=== PATIENT | male | born 1975 | race Asian ===

== ENCOUNTER 2020-02-04 08:11 | Outpatient (CLI) | payer OTHER ==
[2020-02-04 11:53] LABS: BASOPHILS % (AUTO) 0.5 %; EOSINOPHILS # (AUTO) 0.2 10^3/uL (0.0-0.7); HGB - HEMOGLOBIN 14.3 g/dL (14.0-18.0); LYMPHOCYTES # (AUTO) 2.2 10^3/uL (1.5-3.5); LYMPHOCYTES % (AUTO) 40.6 %; MEAN CORPUSCULAR HEMOGLOBIN 29.1 pg (27.0-31.0); MEAN CORPUSCULAR HGB CONC 32.4 g/dL (32.0-36.0); MEAN CORPUSCULAR VOLUME 89.6 fL (80.0-94.0); MEAN PLATELET VOLUME 9.2 fL (7.4-11.4); MONOCYTES # (AUTO) 0.5 10^3/uL (0.0-1.0); MONOCYTES % (AUTO) 9.7 %; NEUTROPHILS # (AUTO) 2.5 10^3/uL (1.5-6.6); PLT - PLATELET COUNT 208 10^3/uL (130-450); RED BLOOD COUNT 4.92 10^6/uL (4.70-6.10); RED CELL DISTRIBUTION WIDTH 13.3 % (12.0-15.0); WHITE BLOOD COUNT 5.5 x10^3/uL (4.8-10.8)
[2020-02-04 12:11] LABS: ALBUMIN 4.5 g/dL (3.2-5.5); ALBUMIN/GLOBULIN RATIO 1.6 (1.0-2.2); ALKALINE PHOSPHATASE 41 IU/L (42-121); ALT ALANINE AMINOTRANSFERASE 19 IU/L (10-60); AST ASPARTATE AMINOTRANSFERASE 22 IU/L (10-42); BILIRUBIN,TOTAL 0.8 mg/dL (0.2-1.0); BUN - BLOOD UREA NITROGEN 9 mg/dL (6-20); CALCIUM 8.8 mg/dL (8.5-10.3); CARBON DIOXIDE - CO2 30 mmol/L (21-32); CHLORIDE 103 mmol/L (101-111); CHOL/HDL RATIO 5.1 (<5.0); CHOLESTEROL 215 mg/dL; CREATININE 0.9 mg/dL (0.6-1.2); GLUCOSE 90 mg/dL (70-100); HDL CHOLESTEROL 42 mg/dL; LDL CHOLESTEROL,CALCULATED 155 mg/dL; LDL/HDL RATIO 3.7 (<3.6); SODIUM 136 mmol/L (135-145); TOTAL PROTEIN 7.4 g/dL (6.7-8.2); VLDL CHOLESTEROL 18 mg/dL
== END 2020-02-04 23:59 | disposition home or self-care (01) ==
LOC: LAB.WCP 08:11
PROVIDERS: ATTEND Physician Assistant
DX: Z00.00 Encounter for general adult medical examination without abnormal findings (principal)
CPT/HCPCS: 36415; 80050; 80061; 83721

== ENCOUNTER 2020-02-08 14:37 | Outpatient (CLI) | payer OTHER ==
--- NOTE | 2020-02-08 16:45 | MRI Report ---
PROCEDURE: Foot LT W/O INDICATIONS: ACHILLES TENDINITIS LT TECHNIQUE: Noncontrast coronal and sagittal T1 spin echo and STIR; axial T1 spin echo and T2 fast spin echo with fat saturation through the left foot/ankle. COMPARISON: None. FINDINGS: Image quality: Excellent. Bones and joints: No acute fracture. No suspicious osseous lesion of the midfoot or hindfoot bones is present. No joint effusions. No osteochondral defects. There is diffuse hindfoot and midfoot degenerative spurring and subchondral sclerosis Medial structures: Deltoid ligament intact. Spring ligament intact. Posterior tibialis intact. There is minimal tenosynovitis. Flexor digitorum longus intact Flexor hallucis longus intact Posterior tibial neurovascular bundle appears normal within the tarsal tunnel, without extrinsic mass effect. Lateral structures: Anterior talofibular ligament intact. Calcaneofibular ligament intact. Posterior talofibular ligament intact. Anterior tibiofibular ligament intact. Posterior tibiofibular ligament intact. Peroneus longus normal Peroneus brevis normal. Sinus tarsi demonstrates normal fatty signal. Anterior structures: Dorsal talonavicular ligament intact. Tibialis anterior normal Extensor hallucis longus normal. Extensor digitorum longus normal Posterior and plantar structures: Achilles tendon intact. There is mild adjacent soft tissue edema seen on image 10/801. There is also retrocalcaneal bursal fluid. The medial and lateral bands of the plantar fascia are within normal limits. IMPRESSION: Minimal edema/fluid adjacent to the Achilles tendon which is otherwise grossly intact, demonstrating no definite thickening or intrasubstance signal changes. Mild retrocalcaneal bursal fluid raising pos sibility of low-grade bursitis. Minimal posterior tibialis tenosynovitis. Reviewed by: Darvin Hoyos MD on 02/08/2020 4:44 PM PDT Approved by: Darvin Hoyos MD on 02/08/2020 4:44 PM PDT Station ID: [id number]
== END 2020-02-08 14:38 | disposition home or self-care (01) ==
LOC: DI 14:37
PROVIDERS: ATTEND Physician Assistant
DX: M76.62 Achilles tendinitis, left leg (principal); M65.9 Synovitis and tenosynovitis, unspecified

== ENCOUNTER 2020-12-01 08:00 | Outpatient (CLI) | payer OTHER ==
[2020-12-01 12:45] LABS: ALBUMIN 4.6 g/dL (3.2-5.5); ALBUMIN/GLOBULIN RATIO 1.5 (1.0-2.2); ALKALINE PHOSPHATASE 38 IU/L (42-121); ALT ALANINE AMINOTRANSFERASE 26 IU/L (10-60); AST ASPARTATE AMINOTRANSFERASE 23 IU/L (10-42); BILIRUBIN,TOTAL 0.8 mg/dL (0.2-1.0); BUN - BLOOD UREA NITROGEN 11 mg/dL (6-20); CALCIUM 9.8 mg/dL (8.5-10.3); CARBON DIOXIDE - CO2 29 mmol/L (21-32); CHLORIDE 103 mmol/L (101-111); CHOLESTEROL 205 mg/dL; GFR - MDRD 80 (>89); GLUCOSE 99 mg/dL (70-100); HDL CHOLESTEROL 41 mg/dL; LDL CHOLESTEROL,CALCULATED 132 mg/dL; LDL/HDL RATIO 3.2 (<3.6); POTASSIUM 4.3 mmol/L (3.5-5.0); SODIUM 139 mmol/L (135-145); TOTAL PROTEIN 7.7 g/dL (6.7-8.2); TRIGLYCERIDES 160 mg/dL; VLDL CHOLESTEROL 32 mg/dL
== END 2020-12-01 23:59 | disposition home or self-care (01) ==
LOC: LAB.WCP 08:00
PROVIDERS: ATTEND Internal Medicine
DX: Z00.00 Encounter for general adult medical examination without abnormal findings (principal)
CPT/HCPCS: 36415; 80053; 80061; 83721

== ENCOUNTER 2021-06-28 15:46 | Outpatient (CLI) | payer OTHER ==
--- NOTE | 2021-06-28 17:21 | XRAY Report ---
PROCEDURE: Chest 2 View X-Ray INDICATIONS: ATYPICAL CP, ASSESS FOR ADENOPATHY OR MASS TECHNIQUE: 2 view(s) of the chest. COMPARISON: None. FINDINGS: Surgical changes and devices: None. Lungs and pleura: No pleural effusions or pneumothorax. Lungs are clear. Mediastinum: Mediastinal contours are normal. Heart size is normal. Bones and chest wall: No suspicious bony abnormalities. Soft tissues appear unremarkable. IMPRESSION: No acute cardiopulmonary disease process. Reviewed by: Chante Sandy MD, PhD on 06/28/2021 5:20 PM PST Approved by: Chante Sandy MD, PhD on 06/28/2021 5:20 PM PST Station ID: [id number]
--- NOTE | 2021-06-28 17:30 | XRAY Report ---
PROCEDURE: Cervical Spine 2 View INDICATIONS: DISCOMFORT IN LEFT NECK/ASSESS FOR DJD/DDD TECHNIQUE: 3 view(s) of the cervical spine were acquired. COMPARISON: None. FINDINGS: Bones: No fractures or dislocations to the C7-T1 level. The lateral masses of C1 appear intact on t he odontoid view. No suspicious bony lesions. There is straightening of normal cervical curvature. Mild to moderate disc space narrowing is present at C5-6. Mild uncovertebral hypertrophy is present. Soft tissues: No prevertebral soft tissue swelling. IMPRESSION: Degenerative changes most notable at C5-6. Reviewed by: Shweta Jones MD on 06/28/2021 5:29 PM PST Approved by: Shweta Jones MD on 06/28/2021 5:29 PM PST Station ID: [id number]
== END 2021-06-28 15:47 | disposition home or self-care (01) ==
LOC: DI.N 15:46
PROVIDERS: ATTEND Internal Medicine
DX: R07.89 Other chest pain (principal); M50.322 Other cervical disc degeneration at C5-C6 level

== ENCOUNTER 2021-06-29 07:00 | Outpatient (CLI) | payer OTHER ==
[2021-06-29 13:44] LABS: BASOPHILS % (AUTO) 0.3 %; EOSINOPHILS # (AUTO) 0.2 10^3/uL (0.0-0.7); EOSINOPHILS % (AUTO) 3.3 %; HGB - HEMOGLOBIN 14.7 g/dL (14.0-18.0); LYMPHOCYTES # (AUTO) 2.1 10^3/uL (1.5-3.5); LYMPHOCYTES % (AUTO) 36.6 %; MEAN CORPUSCULAR HEMOGLOBIN 29.1 pg (27.0-31.0); MEAN CORPUSCULAR HGB CONC 33.4 g/dL (32.0-36.0); MEAN PLATELET VOLUME 9.3 fL (7.4-11.4); MONOCYTES # (AUTO) 0.5 10^3/uL (0.0-1.0); MONOCYTES % (AUTO) 8.4 %; NEUTROPHILS # (AUTO) 2.9 10^3/uL (1.5-6.6); NEUTROPHILS % (AUTO) 51.2 %; PLT - PLATELET COUNT 234 10^3/uL (130-450); RED BLOOD COUNT 5.06 10^6/uL (4.70-6.10); RED CELL DISTRIBUTION WIDTH 13.1 % (12.0-15.0); WHITE BLOOD COUNT 5.7 x10^3/uL (4.8-10.8)
[2021-06-29 14:11] LABS: ALBUMIN 4.4 g/dL (3.2-5.5); ALBUMIN/GLOBULIN RATIO 1.3 (1.0-2.2); ALKALINE PHOSPHATASE 45 IU/L (42-121); ALT ALANINE AMINOTRANSFERASE 26 IU/L (10-60); AST ASPARTATE AMINOTRANSFERASE 21 IU/L (10-42); BILIRUBIN,TOTAL 0.5 mg/dL (0.2-1.0); BUN - BLOOD UREA NITROGEN 9 mg/dL (6-20); CALCIUM 9.4 mg/dL (8.5-10.3); CARBON DIOXIDE - CO2 29 mmol/L (21-32); CHLORIDE 103 mmol/L (101-111); CHOLESTEROL 216 mg/dL; CREATININE 0.9 mg/dL (0.6-1.2); GFR - MDRD 90 (>89); GLUCOSE 103 mg/dL (70-100); POTASSIUM 4.4 mmol/L (3.5-5.0); SODIUM 139 mmol/L (135-145); TOTAL PROTEIN 7.8 g/dL (6.7-8.2); TRIGLYCERIDES 135 mg/dL; VLDL CHOLESTEROL 27 mg/dL
[2021-06-29 14:14] LABS: THYROID STIMULATING HORMONE 1.1 uIU/mL (0.34-5.60)
[2021-06-29 14:59] LABS: CHOL/HDL RATIO 5.8 (<5.0); HDL CHOLESTEROL 37 mg/dL; LDL CHOLESTEROL,CALCULATED 152 mg/dL; LDL/HDL RATIO 4.1 (<3.6)
== END 2021-06-29 23:59 | disposition home or self-care (01) ==
LOC: LAB.WCP 07:00
PROVIDERS: ATTEND Internal Medicine
DX: Z00.00 Encounter for general adult medical examination without abnormal findings (principal); R07.89 Other chest pain
CPT/HCPCS: 36415; 80053; 80061; 83721; 84443; 85025

== ENCOUNTER 2021-08-16 09:11 | Outpatient (CLI) | payer OTHER ==
--- NOTE | 2021-08-16 09:24 | CARDIAC PROCEDURE NOTE ---
Stress Test Report Service Date: 08/16/21 Service Time: 09:30 Ordering Provider: Mandeep Rios Indication for Test: Assess atypical left neck/arm/chest discomfort. Significant Medical History: Nicolle is referred for a treadmill stress echocardiogram today, to assess symptoms that include pain in the left neck, radiating into the upper left arm and upper chest. He was previously very active with aerobic activities and had a prior stress echocardiogram at this [facility] in 2014, with exercise into stage 5 of the Eduardo protocol, without symptom, EKG or echo evidence of inducible ischemia. He works a sedentary job and reports that his exertional level dropped significantly with the onset of the Covid pandemic 2 years ago. This may have been in part due to the onset of the symptoms described above, which have gradually increased over the past 3 years. At times the discomfort is present continuously, and actually lessens in intensity with physical activity. He is working with a physical therapist on loosening his cervical spine, with some modest improvement over the past few weeks. He still takes leisurely walks in his neighborhood with stamina that has not incrementally worsened in the recent past. Cardiac Risk Factors: Patient denies history of hypertension, hyperlipidemia, diabetes or family history of CAD; he smoked cigarettes as a young man, but quit about 28 years ago. Type of Stress Test: ETT with Echocardiography Procedure: -Exercise Treadmill Test- After signing informed consent, the patient underwent resting echo imaging and then performed treadmill exercise using a Eduardo protocol. The patient exercised for 9 minutes 37 seconds and achieved a peak heart rate of 169 (98 percent predicted maximum heart rate for age), and an estimated workload of 11.4 METS. The test was terminated due to fatigue/shortness of breath. Resting heart rate: 73 Peak heart rate: 169 Normal response to exercise. Resting BP: 120/89 Peak BP: 191/83 Normal response of systolic and diastolic blood pressures to exercise. Rhythm during exercise: Sinus rhythm throughout. Symptoms: The patient denied experiencing any neck/shoulder/arm or chest discomfort. EKG at rest showed normal sinus rhythm, normal in all aspects. EKG at peak stress showed J-point depression with upsloping ST segments, likely NOT meeting diagnostic criteria for ischemia. In Recovery heart rate and blood pressures rapidly and normally returned to baseline levels by 5 minutes. Echo imaging performed at rest and with stress will be reported separately. Chon Sanz MD, was present throughout this treadmill stress echocardiogram and supervised it in its entirety. Summary: 1) Exercise tolerance slightly below average for age as evidenced by RAMÍREZ of 10%. 2) Normal resting EKG. 3) Adequate level of exercise was achieved on this treadmill stress test. 4) Normal BP response to exercise. 5) No ischemic changes by EKG criteria were seen at peak stress. 6) Echo image interpretation reveals normal left ventricular size and systolic function, with appropriate hyperdynamic augmentation of all segments with stress, indicative of no evidence of prior infarct or inducible ischemia. Note that screening study identified borderline dilation of the aortic root (4.0 cm) with a tri-leaflet, non-stenotic and non-regurtitant aortic valve. See separate report for more detail. CONCLUSIONS: 1) Low risk treadmill stress echocardiogram with no symptom, EKG or echo evidence of inducible ischemia. 2) Borderline dilation of aortic root was seen, that could possibly be consistent with patient's reported history of being highly athletic, borne out by treadmill time >15 min (into stage 5) on prior study 7 years ago. There is no dilation of ascending aorta as visualized. A repeat diagnostic echocardiogram in 2-3 years to assess for possible progression of this finding is advisable.
== END 2021-08-16 09:12 | disposition home or self-care (01) ==
LOC: DI 09:11
PROVIDERS: ATTEND Internal Medicine
DX: R07.89 Other chest pain (principal); I77.819 Aortic ectasia, unspecified site; Z87.891 Personal history of nicotine dependence
CPT/HCPCS: 93016; 93017; 93018; 93350

== ENCOUNTER 2022-05-14 15:56 | Outpatient (CLI) | payer OTHER ==
[2022-05-14 18:38] LABS: BASOPHILS % (AUTO) 0.5 %; EOSINOPHILS # (AUTO) 0.2 10^3/uL (0.0-0.7); HCT - HEMATOCRIT 45.7 % (42.0-52.0); HGB - HEMOGLOBIN 14.7 g/dL (14.0-18.0); LYMPHOCYTES # (AUTO) 2.9 10^3/uL (1.5-3.5); LYMPHOCYTES % (AUTO) 38.1 %; MEAN CORPUSCULAR HEMOGLOBIN 28.2 pg (27.0-31.0); MEAN CORPUSCULAR HGB CONC 32.2 g/dL (32.0-36.0); MEAN CORPUSCULAR VOLUME 87.7 fL (80.0-94.0); MEAN PLATELET VOLUME 9.2 fL (7.4-11.4); MONOCYTES # (AUTO) 0.8 10^3/uL (0.0-1.0); MONOCYTES % (AUTO) 10.9 %; NEUTROPHILS # (AUTO) 3.6 10^3/uL (1.5-6.6); NEUTROPHILS % (AUTO) 47.2 %; PLT - PLATELET COUNT 282 10^3/uL (130-450); RED BLOOD COUNT 5.21 10^6/uL (4.70-6.10); RED CELL DISTRIBUTION WIDTH 13.2 % (12.0-15.0); WHITE BLOOD COUNT 7.6 x10^3/uL (4.8-10.8)
[2022-05-14 18:49] LABS: ALBUMIN 4.7 g/dL (3.2-5.5); ALBUMIN/GLOBULIN RATIO 1.2 (1.0-2.2); BILIRUBIN,TOTAL 0.4 mg/dL (0.2-1.0); CALCIUM 9.3 mg/dL (8.5-10.3); CREATININE 0.8 mg/dL (0.6-1.2); POTASSIUM 4.2 mmol/L (3.5-5.0); TOTAL PROTEIN 8.6 g/dL (6.7-8.2)
== END 2022-05-14 15:57 | disposition home or self-care (01) ==
LOC: LAB.N 15:56
PROVIDERS: ATTEND Internal Medicine
DX: R10.13 Epigastric pain (principal)
CPT/HCPCS: 36415; 80053; 82150; 83690; 85025

== ENCOUNTER 2022-05-24 06:50 | Outpatient (CLI) | payer OTHER ==
--- NOTE | 2022-05-24 13:53 | Ultrasound Report ---
PROCEDURE: Abdomen Complete INDICATIONS: ABD PAIN TECHNIQUE: Real-time scanning was performed of the abdominal and retroperitoneal organs, with image documentatio n. COMPARISON: None. FINDINGS: Liver: Hepatic steatosis. No focal hepatic mass. Gallbladder: Small volume of sludge layers in the gallbladder. No shadowing gallstone. Two tiny gallb ladder polyps measuring 3 mm and 5 mm noted. Areas of echogenicity in the gallbladder wall with ringd own/comet tail artifact indicative of cholesterolosis. No gallbladder wall thickening or pericholecys tic fluid. Biliary ducts: No intrahepatic or extrahepatic biliary ductal dilatation. Pancreas: Obscured by bowel gas and not visualized. Spleen: Spleen is normal in size and homogeneous in echotexture. Kidneys: No shadowing calculus, hydronephrosis, or other acute left renal cyst measuring 1.8 cm. Aorta: Visualized aorta is normal in caliber at less than 3 cm. Iliacs: Proximal common iliac arteries are normal in caliber at less than 2.5 cm. IVC: Intrahepatic inferior vena cava is patent. Miscellaneous: No free abdominal fluid. IMPRESSION: Gallbladder sludge with two small gallbladder polyps and cholesterolosis but no findings of cholecyst itis. Findings raise concern for possible gallbladder dysfunction and the gallbladder remains a poten tial source of abdominal pain. Hepatic steatosis. Reviewed by: Jalen Raman MD on 05/24/2022 12:52 PM [facility] Approved by: Jalen Raman MD on 05/24/2022 12:52 PM [facility] Station ID: [id number]
== END 2022-05-24 06:51 | disposition home or self-care (01) ==
LOC: DI 06:50
PROVIDERS: ATTEND Internal Medicine
DX: K82.4 Cholesterolosis of gallbladder (principal); K76.0 Fatty (change of) liver, not elsewhere classified

== ENCOUNTER 2022-10-07 12:40 | Outpatient (CLI) | payer OTHER ==
[2022-10-07 17:49] LABS: BASOPHILS % (AUTO) 0.3 %; EOSINOPHILS # (AUTO) 0.3 10^3/uL (0.0-0.7); EOSINOPHILS % (AUTO) 4.2 %; HCT - HEMATOCRIT 46.2 % (42.0-52.0); HGB - HEMOGLOBIN 15.4 g/dL (14.0-18.0); LYMPHOCYTES # (AUTO) 2.8 10^3/uL (1.5-3.5); LYMPHOCYTES % (AUTO) 40.9 %; MEAN CORPUSCULAR HEMOGLOBIN 29.1 pg (27.0-31.0); MEAN CORPUSCULAR HGB CONC 33.3 g/dL (32.0-36.0); MEAN CORPUSCULAR VOLUME 87.2 fL (80.0-94.0); MEAN PLATELET VOLUME 9.2 fL (7.4-11.4); MONOCYTES # (AUTO) 0.5 10^3/uL (0.0-1.0); MONOCYTES % (AUTO) 7.6 %; NEUTROPHILS # (AUTO) 3.2 10^3/uL (1.5-6.6); NEUTROPHILS % (AUTO) 46.7 %; PLT - PLATELET COUNT 225 10^3/uL (130-450); RED CELL DISTRIBUTION WIDTH 13.2 % (12.0-15.0); WHITE BLOOD COUNT 6.9 x10^3/uL (4.8-10.8)
[2022-10-07 18:26] LABS: % IRON SATURATION 24 % (20-50); ALBUMIN 4.5 g/dL (3.2-5.5); ALBUMIN/GLOBULIN RATIO 1.5 (1.0-2.2); ALKALINE PHOSPHATASE 47 IU/L (42-121); ALT ALANINE AMINOTRANSFERASE 31 IU/L (10-60); AST ASPARTATE AMINOTRANSFERASE 24 IU/L (10-42); BILIRUBIN,TOTAL 0.7 mg/dL (0.2-1.0); BUN - BLOOD UREA NITROGEN 7 mg/dL (6-20); CALCIUM 9.1 mg/dL (8.5-10.3); CARBON DIOXIDE - CO2 29 mmol/L (21-32); CHLORIDE 106 mmol/L (101-111); CHOL/HDL RATIO 5.3 (<5.0); CHOLESTEROL 222 mg/dL; CREATININE 0.7 mg/dL (0.6-1.2); GFR - MDRD 120 (>89); GLUCOSE 96 mg/dL (70-100); HDL CHOLESTEROL 42 mg/dL; IRON 87 ug/dL (45-182); LDL CHOLESTEROL,CALCULATED 149 mg/dL; LDL/HDL RATIO 3.5 (<3.6); POTASSIUM 3.6 mmol/L (3.5-5.0); SODIUM 140 mmol/L (135-145); TOTAL IRON BINDING CAPACITY 370 ug/dL (250-450); TOTAL PROTEIN 7.6 g/dL (6.7-8.2); TRANSFERRIN 264 mg/dL (180-329); TRIGLYCERIDES 153 mg/dL; VLDL CHOLESTEROL 31 mg/dL
[2022-10-07 18:34] LABS: THYROID STIMULATING HORMONE 3.03 uIU/mL (0.34-5.60)
[2022-10-07 18:40] LABS: FERRITIN 183.7 ng/mL (23.9-336.2)
[2022-10-08 04:08] LABS: HCV AB Non Reactive (Non Reactive)
[2022-10-08 07:10] LABS: HBsAG SCREEN Negative (Negative); HEPATITIS B SURFACE AB QUANT 15.8 mIU/mL (Immunity>9.9)
== END 2022-10-07 12:41 | disposition home or self-care (01) ==
LOC: LAB.N 12:40
PROVIDERS: ATTEND Internal Medicine
DX: R79.89 Other specified abnormal findings of blood chemistry (principal); Z13.220 Encounter for screening for lipoid disorders; L20.9 Atopic dermatitis, unspecified
CPT/HCPCS: 36415; 80053; 80061; 82728; 83540; 83721; 84443; 84466; 85025; 86317; 86803; 87340

== ENCOUNTER 2023-02-20 08:00 | Outpatient (CLI) | payer OTHER ==
--- NOTE | 2023-02-20 18:27 | XRAY Report ---
PROCEDURE: Knee 4 View BILAT INDICATIONS: BILAT KNEE PAIN TECHNIQUE: 4 views of each knee(s) were acquired. COMPARISON: Right knee, 01/18/2022. FINDINGS: Bones: No fractures or dislocations. No suspicious bony lesions. Mild tricompartmental osteoarthrit is bilaterally. Minimal joint space narrowing with weightbearing. Soft tissues: Small knee joint effusions laterally. No suspicious soft tissue calcifications or mass es. IMPRESSION: 1. Mild osteoarthritis.. 2. Small knee joint effusion. Reviewed by: Mahin Trevino MD on 02/20/2023 6:26 PM PDT Approved by: Mahin Trevino MD on 02/20/2023 6:26 PM PDT Station ID: [id number]
== END 2023-02-20 23:59 | disposition home or self-care (01) ==
LOC: DI.WOS 08:00
PROVIDERS: ATTEND Orthopaedic Surgery
DX: M17.0 Bilateral primary osteoarthritis of knee (principal); M25.462 Effusion, left knee; M25.461 Effusion, right knee

== ENCOUNTER 2023-05-09 09:32 | Outpatient (CLI) | payer OTHER ==
--- NOTE | 2023-05-09 10:28 | XRAY Report ---
PROCEDURE: Lumbar Spine 2 View INDICATIONS: BACK PAIN TECHNIQUE: 3 views of the lumbar spine were acquired. COMPARISON: None. FINDINGS: Bones: 5 [id number]-[id number] vertebrae are present. There is normal bony alignment. No vertebral body compression fractures. No suspicious bony lesions. Partial lumbarization of S1-S2. Mild degenerative changes of L5-S1. Soft tissues: Overlying bowel gas pattern is normal. No suspicious soft tissue calcifications. IMPRESSION: 1. No acute abnormality. 2. Mild degenerative changes of L5-S1. 3. Partial lumbarization of S1-S2 Reviewed by: Dandre Mejía on 05/09/2023 10:26 AM [facility] [[email or web address]] Approved by: Dandre Mejía on 05/09/2023 10:26 AM [facility] [[email or web address]] Station ID: [id number]
== END 2023-05-09 09:33 | disposition home or self-care (01) ==
LOC: DI 09:32
PROVIDERS: ATTEND Internal Medicine
DX: M47.817 Spondylosis without myelopathy or radiculopathy, lumbosacral region (principal)

== ENCOUNTER 2023-07-26 09:12 | Outpatient (CLI) | payer OTHER ==
[2023-07-26 19:31] LABS: BASOPHILS % (AUTO) 0.5 %; EOSINOPHILS # (AUTO) 0.2 10^3/uL (0.0-0.7); EOSINOPHILS % (AUTO) 3.6 %; HGB - HEMOGLOBIN 14.7 g/dL (14.0-18.0); LYMPHOCYTES # (AUTO) 2.4 10^3/uL (1.5-3.5); LYMPHOCYTES % (AUTO) 36.2 %; MEAN CORPUSCULAR HEMOGLOBIN 29.1 pg (27.0-31.0); MEAN CORPUSCULAR VOLUME 91.1 fL (80.0-94.0); MEAN PLATELET VOLUME 9.3 fL (7.4-11.4); MONOCYTES # (AUTO) 0.6 10^3/uL (0.0-1.0); MONOCYTES % (AUTO) 9.6 %; NEUTROPHILS # (AUTO) 3.3 10^3/uL (1.5-6.6); NEUTROPHILS % (AUTO) 49.9 %; PLT - PLATELET COUNT 211 10^3/uL (130-450); RED BLOOD COUNT 5.05 10^6/uL (4.70-6.10); RED CELL DISTRIBUTION WIDTH 13.7 % (12.0-15.0); WHITE BLOOD COUNT 6.6 x10^3/uL (4.8-10.8)
[2023-07-26 19:55] LABS: ALBUMIN 4.5 g/dL (3.2-5.5); ALBUMIN/GLOBULIN RATIO 1.6 (1.0-2.2); ALKALINE PHOSPHATASE 45 IU/L (42-121); ALT ALANINE AMINOTRANSFERASE 47 IU/L (10-60); AST ASPARTATE AMINOTRANSFERASE 33 IU/L (10-42); BILIRUBIN,TOTAL 0.5 mg/dL (0.2-1.0); BUN - BLOOD UREA NITROGEN 9 mg/dL (6-20); CALCIUM 9.5 mg/dL (8.5-10.3); CARBON DIOXIDE - CO2 30 mmol/L (21-32); CHLORIDE 105 mmol/L (101-111); CHOL/HDL RATIO 5.1 (<5.0); CHOLESTEROL 204 mg/dL; CREATININE 0.8 mg/dL (0.6-1.3); GFR - MDRD 102 (>89); GLUCOSE 97 mg/dL (74-104); HDL CHOLESTEROL 40 mg/dL; LDL CHOLESTEROL,CALCULATED 134 mg/dL; LDL/HDL RATIO 3.4 (<3.6); POTASSIUM 4.2 mmol/L (3.5-4.5); SODIUM 140 mmol/L (135-145); TOTAL PROTEIN 7.3 g/dL (6.4-8.9); TRIGLYCERIDES 149 mg/dL (48-352); VLDL CHOLESTEROL 30 mg/dL
== END 2023-07-26 09:13 | disposition home or self-care (01) ==
LOC: LAB.N 09:12
PROVIDERS: ATTEND Internal Medicine
DX: H93.A2 Pulsatile tinnitus, left ear (principal); Z12.5 Encounter for screening for malignant neoplasm of prostate; Z13.220 Encounter for screening for lipoid disorders; K76.0 Fatty (change of) liver, not elsewhere classified
CPT/HCPCS: 36415; 80053; 80061; 83721; 84153; 85025

== ENCOUNTER 2023-08-15 13:44 | Outpatient (CLI) | payer OTHER ==
[2023-08-15] MEDS ORDERED: iohexoL-300 100 ML VIAL ONE (13:56)
[2023-08-15] MEDS: iohexoL-300 100 ML VIAL IVP ONE (17:46)
--- NOTE | 2023-08-16 15:01 | CT Report ---
PROCEDURE: CT Angio Head INDICATIONS: PULSATILE TINNITUS CONTRAST: 80ml omni 300 TECHNIQUE: After the administration of intravenous contrast, 1 mm thick sections acquired through the [place]. Postcontrast 4.5 mm thick sections then re-acquired from the foramen magnum to the vertex. 3-dimensional pvievgy-tldmkexbf-cjjwlcxxha (MIP) and/or volume rendering reformats were acquired of [facility] central intracranial vasculature. For radiation dose reduction, the following was used: automate d exposure control, adjustment of mA and/or kV according to patient size. COMPARISON: None. FINDINGS: Image quality: Diagnostic. Anterior circulation: Intracranial internal carotid arteries are normal in size and flow. The flow within the paired anterior cerebral arteries is normal and symmetric. The flow within the middle cer ebral arteries is normal and symmetric. The anterior communicating artery is seen. No aneurysms are seen. Posterior circulation: There is a left vertebral artery dominance. Visualized portions of the vertebr al arteries demonstrate normal caliber, and join to form a normal appearing basilar artery. Flow wit hin the posterior cerebral arteries is normal and symmetric. No aneurysms are seen. CSF spaces: Ventricles are normal in size and shape. Basal cisterns are patent. No extra-axial flu id collections. Brain: No midline shift. No intracranial bleeds or masses. Briggs-white matter interface appears int act. Skull and face: Calvarium and facial bones appear intact, without suspicious lesions. Sinuses: Visualized sinuses and mastoids are clear. IMPRESSION: 1. No acute intracranial process. 2. No areas of hemodynamically significant stenosis, vascular occlusion or aneurysmal dilation within the anterior circulation. 2. No areas of hemodynamically significant stenosis, vascular occlusion or aneurysmal dilation within the posterior circulation. Reviewed by: Shweta Jones MD on 08/16/2023 3:00 PM PST Approved by: Shweta Jones MD on 08/16/2023 3:00 PM PST Station ID: [id number]
== END 2023-08-15 13:45 | disposition home or self-care (01) ==
LOC: DI 13:44
PROVIDERS: ATTEND Internal Medicine
DX: H93.A2 Pulsatile tinnitus, left ear (principal)
CPT/HCPCS: 70496; Q9967